=== PATIENT | male | born 1965 | race Caucasian/White ===

== ENCOUNTER 2021-11-14 14:40 | Outpatient (CLI) | payer BC, SELFPAY ==
--- NOTE | 2021-11-14 14:50 | CT_ITS ---
WS: [id number] CT HEAD WITH AND WITHOUT CONTRAST HISTORY: OBSTRUCTIVE SLEEP APNEA TECHNIQUE: Noncontrast 2.5 mm axial images obtained from the vertex to the skull base. Additional luis ging performed at 2.5 mm axial images status post IV contrast. Bone and soft tissue windows are revie wed. All CT scans at [facility] use at least one of these dose optimization techniques: autom ated exposure control; mA and/or kV adjustment per patient size (includes targeted exams where dose i s matched to clinical indication); or iterative reconstruction. CONTRAST: Omnipaque 300; 95 mL IV. DLP: 1589.81 mGy.cm COMPARISON: 04/25/2006 No acute intracranial hemorrhage, edema or midline shift. Mild atrophy and mild chronic microvascular ischemic disease. No prior infarct. No enhancing mass or vascular malformations identified. Dural venous sinuses are normally enhancing. Visualized [place] is unremarkable. Paranasal sinuses as visualized: Clear. Mastoid air cells: Clear. Calvarium and scalp: Intact. CT/CT head wo/w con [id number] IMPRESSION: 1. Very mild cerebral atrophy and chronic ischemic disease. Slightly progresse d since 2005. 2. No enhancing masses or vascular malformations.
--- NOTE | 2021-11-14 14:51 | CT_ITS ---
WS: [id number] CT PARANASAL SINUSES HISTORY: SINUSITIS TECHNIQUE: Contiguous 2.5 mm axial images obtained through the sinuses. Images are reconstructed in s agittal and coronal planes. All CT scans at [facility] use at least one of these dose optimiz ation techniques: automated exposure control; mA and/or kV adjustment per patient size (includes targ eted exams where dose is matched to clinical indication); or iterative reconstruction. DLP: 572.46 mGy.cm COMPARISON: None available. Frontal sinuses: Normal. Sphenoid sinus: Normal. Ethmoid sinuses: Small amount mucoperiosteal thickening in the LEFT frontal ethmoid sinus and within the anterior ethmoid air cells. Normal RIGHT ethmoid air cells. Maxillary sinus: Small mucous retention cyst in the floor of the RIGHT maxillary sinus. No air-fluid levels. Ostiomeatal unit: Mild mucoperiosteal thickening at the ostiomeatal units. There is a very small soft tissue septum extending across the LEFT ostiomeatal unit. No significant deviation of the nasal septum. CT/CT sinus wo con* [id number] IMPRESSION: 1. No air-fluid levels. 2. Mild mucoperiosteal thickening in the LEFT frontoethmoid and anterior ethmo id sinuses. 3. Small mucous retention cyst floor of the RIGHT maxillary sinus. 4. Very mild mucoperiosteal thickening with minimal obstruction of the ostiome atal units.
[2021-11-14] MEDS: iohexol 300 mg/mL 100 mL Btl IV (15:02)
== END 2021-11-14 14:41 | disposition home or self-care (01) ==
PROVIDERS: PCP Family Medicine; Visit Provider Family Medicine
DX: G44.229 Chronic tension-type headache, not intractable (principal); J32.9 Chronic sinusitis, unspecified; J34.1 Cyst and mucocele of nose and nasal sinus; G47.33 Obstructive sleep apnea (adult) (pediatric)
CPT/HCPCS: 70470; 70486